=== PATIENT | male | born 1970 | race Caucasian/White ===

== ENCOUNTER 2019-07-09 23:21 | Emergency (ER) | payer BC, OTHER ==
[2019-07-10] MEDS ORDERED: Sodium Chloride 0.9% 1,000 ML IV ONE (01:13)
[2019-07-10] MEDS ORDERED: Prochlorperazine 10 MG in Sodium Chloride 0.9% 50 ML IV ONE (01:13)
[2019-07-10] MEDS ORDERED: Ketorolac 30 MG/ML SDV IVPUSH ONE (01:13)
[2019-07-10] MEDS ORDERED: diphenhydrAMINE 50 MG/ML SDV IVPUSH ONE (01:13)
--- NOTE | 2019-07-10 02:52 | EDM.PDOC ---
ED HPI GENERAL MEDICAL PROBLEM - General Chief Complaint: Cardiovascular Problem Stated Complaint: BLOOD PRESSURE Time Seen by Provider: 07/10/19 00:55 - History of Present Illness INITIAL COMMENTS - FREE TEXT/NARRATIVE: HPI 49-year-old male migraineur presents for evaluation of a right-sided pounding and at times pulsatile type headache along with the concern that he has high blood pressure. Patient reports that he was recently diagnosed with hypertension , has been treated by urgent care doctors but has yet to establish or follow-up the primary care physician. * Denies changes in vision or hearing (aside from above), fevers, neck stiffness , rashes, neck pain, temporal pain, jaw pain with chewing, dental pain, minor neck trauma, chiropractic manipulation, or head trauma. * Denies anticoagulation or hypercoaguable history. * No family members with similar symptoms. CO detectors in house. Unable to identify any higher risk exposures to possible carbon monoxide. M/S/F/SocHx notable for: please see HPI; remainder reviewed with patient and in chart. ROS: Negative constitutional, eye, cardiovascular, pulmonary, GI, , MSK, skin , neurologic, psychiatric, endocrine unless noted in the HPI. Exam HR 75, RR 18, BP 169/95, T 35.8C, SaO2 96% on room air. Gen: Pleasant, non-toxic appearing, resting comfortably. HEENT: NC, AT, TMs clear bilaterally without effusions, erythema, or lesions, preauricular, pinna, and external canal skin without lesions. Dentition intact without visible caries. No frontal or maxillary sinus TTP. No paraspinal posterior neck pain. Resp: clear to auscultation bilaterally. Card: RRR GI: NT/ND : Deferred MSK: No visible deformities, strength and tone WNL. Skin: Normal color with no visible lesions. Neuro: alert and oriented 3, no facial asymmetry, no gaze preference, no slurring of speech. CN II-III: pupils equal and reactive (4->2mm bilaterally); III, IV, : EOMI, V1-V3: sensation to touch bilaterally intact; VII: no facial asymmetry (frown / smile); VIII: no nystagmus; X: phonation intact, uvula midline; XI: trapezius 5/5 bilaterally, XII: tongue midline. Psych: Mood and affect appropriate. Labs / Imaging (pertinent): EKG: SR 113 bpm, no ST segment elevations or depressions, no LBBB. MDM Previous chart, nursing note, and vitals reviewed. A: 49-year-old male presents for evaluation of a right-sided pounding and at times pulsatile type headache along with the concern that he has high blood pressure. DDx: migraine / tension headache, cluster headache, sentinel bleed/SAH, infection (BIOINFORMATICIST vs SUGGS secondary to non-BIOINFORMATICIST focal infection), tumor/mass effect, hypertensive encephalopathy, glaucoma or iritis, idiopathic intracranial hypertension, cavernous sinus thrombosis, temporal arteritis. Evaluation: discuss with patient the possibility of his apparently new in nature right-sided headaches along with the pulsatile complement being concerning for serious etiology (dissection, tumor, or alternate etiologies). Patient considered the possibility of further evaluation and declined all imaging or laboratory testing and requested treatment of his headache. The headache was treated with 1 L NS, Compazine, diphenhydramine, and Toradol with resolution of headache. Blood pressure remained within the brains autoregulatory zone. No features suggestive of sentinel bleed or SAH by history , neuro exam unremarkable, and the patient is without ocular competence suggestive of glaucoma or iritis. No identifiable risk features for thrombosis or temporal arteritis. Patient was discharged AMA along with a refill for his losartan 25 mg q.d. Patient instructed to follow up immediately with primary care. Impression: headache, asymptomatic hypertension. head Pain Score (Numeric/FACES): 2 - Related Data Allergies Allergy/AdvReac Type Severity Reaction Status Date / Time No Known Allergies Allergy Verified 07/10/19 00:31 Home Meds: Home Meds Losartan [Cozaar] 25 mg PO DAILY #30 tablet 07/10/19 [Rx] Past Medical History Cardiovascular History: Reports: Hypertension Endocrine/Metabolic History: Reports: Obesity/BMI 30+ - Past Surgical History GI Surgical History: Reports: Cholecystectomy Musculoskeletal Surgical History: Reports: Shoulder Surgery Social & Family History - Family History Family Medical History: Noncontributory - Tobacco Use Smoking Status *Q: Never Smoker - Recreational Drug Use Recreational Drug Use: No ED ROS GENERAL - Review of Systems Review Of Systems: See Below ED EXAM, GENERAL - Physical Exam Exam: See Below Course - Vital Signs Last Recorded V/S: Last Vital Signs Temp 35.8 C 07/10/19 00:20 Pulse 75 07/10/19 00:20 Resp 18 07/10/19 00:20 BP 169/95 H 07/10/19 00:20 Pulse Ox 96 07/10/19 00:20 - Orders/Labs/Meds Orders: Active Orders 24 hr Category Date Time Status EKG 12 Lead [EKG Documentation Completion] [RC] STAT Care 07/10/19 00:47 Active Meds: Medications Discontinued Medications Generic Name Dose Route Start Last Admin Trade Name Michael PRN Reason Stop Dose Admin Diphenhydramine HCl 25 mg 07/10/19 01:13 07/10/19 01:27 Benadryl IVPUSH 07/10/19 01:14 25 mg ONETIME ONE Administration Prochlorperazine Edisylate 10 52 mls @ 150 mls/hr 07/10/19 01:13 07/10/19 01: 36 mg/ Sodium Chloride IV 07/10/19 01:33 150 mls/hr ONETIME ONE Administration Sodium Chloride 1,000 mls @ 1,000 mls/hr 07/10/19 01:13 07/10/19 01:27 Normal Saline IV 07/10/19 02:12 1,000 mls/hr .Bolus ONE Administration Ketorolac Tromethamine 15 mg 07/10/19 01:13 07/10/19 01:26 Toradol IVPUSH 07/10/19 01:14 15 mg ONETIME ONE Administration Departure - Departure Time of Disposition: 02:50 Disposition: Home, Self-Care 01 Clinical Impression: Headache Prescriptions: Losartan [Cozaar] 25 mg PO DAILY #30 tablet Referrals: PCP,None [Primary Care Provider] - Additional Instructions: You were in seen in the Emergency Department for evaluation of a headache. At time of your evaluation the cause of your headaches is unclear. As we discussed there is concern that your headache might represent a serious underlying problem. This could lead to permanent and sudden disability or . You are being discharged against medical advice. You are welcome to return to this or any other emergency department at any time for further care. Prior to being discharged, you expressed an understanding that you are risking permanent disability or from an undiagnosed or untreated emergency medical condition. You also expressed a willingness to accept this risk and assume responsibility for the results of this choice. At the time of your discharge we are concerned that you are at risk for serious problem causing your headache such as a dissection of the blood vessels of your chest, head, or neck, tumor, or other significant abnormality and we recommend remaining in the emergency department for further care. To reduce your risk, please do the following: Return immediately for any worsening of condition or any other new concerns. Read all the instructions we provided today. Continue all your medications as prescribed. Follow up with your primary care physician immediately. You are being discharged against medical advice. You are welcome to return to this or any other emergency department at any time for further care. Please read and follow all of the instructions below. When calling for follow-up care, please make the office aware that this follow- up is from your recent emergency room visit. If for any reason you are refused follow-up, please contact the Emergency Department at and asked to speak to the emergency department charge nurse. Your care today was limited to identifying and treating emergent medical problems only. Many people have subtle differences in their test results that require follow up with their outpatient physician(s) to correctly determine if this represents a normal variation or concerning abnormality with respect to your specific health. The care given to you today was limited to identifying and treating emergent medical problems - you need to request a copy of all of your medical records from today's visit and follow up with your outpatient physician(s) to review both today's visit and your overall health. If you have any new symptoms or if you are at all concerned about your health please return immediately to the emergency department. Prescriptions: If you are uninsured or have financial difficulties with filling your prescription(s), you may consider using a free pharmacy discount service such as [employer] (FindIt) or [employer] ([employer]gifted2you). These services allow you to search for a medication on your phone (or computer) and obtain a coupon that usually has a significant discount from the list retana at a pharmacy. Your physician as well as [facility] does not have a financial relationship with either of these services. You may also wish to speak with your physician to determine if lower cost prescriptions are possible. Obtaining primary care: 1. [facility] provides pediatrics (children), family medicine (children, adults, and some obstetrical care), and internal medicine (adults). Further specialty care is also available. Same day appointments are available. They may be contacted at [phone] and are open Thursday through Thursday 8 AM to 5 PM. The [facility] clinics are located at [facility], [address], [place] [address]. 2. [facility] offers family medicine, internal medicine, women health, and further specialty care. [facility] may be contacted at [phone]. [facility] is located at [address] [place], [address]. 3. If you have health insurance, please also contact your insurer for a list of accepting providers under your policy, you may contact these providers for further health care. Occupational health: Work related injuries may consider following up with [facility], . Occupational health services are located at [address], [place] [address] and are open Thursday through Thursday from 7: 30 am to 5:00 pm. Obstetrical and Gynecological Care: [facility], , Thursday through Thursday 8 AM to 5 PM. [address] [place] [address]. Eyecare: If you have an eye injury you should follow up with your crew leader gluing or with [facility], at [phone] or [phone] , they are located at [address] [place] [address]. Dental Care Quinton Rodrigues DDS. [address] [facility], [place], [place]. Ph. [phone] Mac Rodrigues DDS MS. [address] [facility] [address], [place], [place]. Ph. [phone] Pedro Pablo Suarez DDS. 10 07/07 [facility], [place]. Ph. [phone] Naresh Crow DDS. [address] [facility] [address] [place], [place]. Ph. [phone] Haile Zurita DDS PC. [address] [place], [place]. Ph. [phone] Moisés Simpson DDS. [address] [facility]. Ph. [phone] [facility]. [address] [place], [place]. Ph. [phone] [facility]. [address], [place], [place]. Ph. [phone] [facility] [address] [place] [address]. Ph. [phone] [facility]. [address] [place] [address] [address] [place], [place]. Ph. [phone] [facility]. [address] [place], [place]. Ph. [phone] Headache You were seen in the emergency department for evaluation and treatment of a headache. There are many causes for headaches. Most are painful but do not threaten your health. However there are some types of headaches that can be life threatening. Please return to the emergency department if you develop any of the following: * Your headache worsens, becomes severe, or you have nausea or vomiting. * Fever greater than 100.5 degrees Fahrenheit. * You have neck stiffness. * Changes in vision or hearing. * You have new weakness, numbness, or decreased sensation. * You have dizziness or difficulty walking * You feel faint or like you will pass out. Please follow up with your primary care doctor if your symptoms continue or do not improve. If you have recurrent headaches, your primary care physician may be able to prescribe medications that abort headaches or refer you to a neurologist for further evaluation and work up of your headaches. Home care instructions: * Keep all follow-up appointments with your caregiver or any specialist referral. * Lie down in a dark, quiet room when you have a headache. Keep a headache journal to find out what may trigger your migraine headaches. For example, write down: * What you eat and drink. * How much sleep you get. * Any change to your diet or medicines. * Try massage or other relaxation techniques. * Put ice packs or heat on the head and neck. Use these 3 to 4 times per day for 15 to 20 minutes each time, or as needed. * Limit stress. * Sit up straight, and do not tense your muscles. * Quit smoking if you smoke. * Limit alcohol use. * Decrease the amount of caffeine you drink, or stop drinking caffeine. * Eat and sleep on a regular schedule. * Get 7 to 9 hours of sleep, or as recommended by your caregiver. * Keep lights dim if bright lights bother you and make your headaches worse. You make take over the counter Acetaminophen (Tylenol) and Ibuprofen (Motrin or Aleve) as directed below for relief of pain. * Take 600 mg of ibuprofen (three 200 mg tablets) with a glass of water every 6- 8 hours as needed for pain or fever. Do not take if , allergic to ibuprofen, or if you have severe kidney disease. * Take 1,000 mg of acetaminophen (two 500 mg tablets) with a glass of water every 6-8 hours as needed for pain. Do not take up allergic to acetaminophen. If you have liver disease do not take more than 2000 mg in 24 hours. * You can take these medications at the same time or on separate schedules. * Do not take for more than 10 days. * Do not take with alcohol or other acetaminophen containing medications. * This medication may cause a mildly upset stomach, if so take it with a small snack. Stop taking it if you have persistent abdominal pain, heartburn, or any stomach pain. Do not take this medication if you have known ulcers. * Please read the warnings at the end of this document regarding these medications. IBUPROFEN WARNING: This drug may infrequently cause serious (rarely fatal) bleeding from the stomach or intestines. Also, related drugs rarely have caused blood clots to form, resulting in heart attacks and strokes. This medication might also rarely cause similar problems. Talk to your doctor or pharmacist about the benefits and risks of treatment, as well as other possible medication choices. If you notice any of the following rare but very serious side effects, stop taking ibuprofen and seek immediate medical attention: black stools, persistent stomach/abdominal pain, vomit that looks like coffee grounds, chest pain, weakness on one side of the body, sudden vision changes, slurred speech. IBUPROFEN SIDE EFFECTS: Upset stomach, nausea, vomiting, heartburn, headache, diarrhea, constipation, drowsiness, and dizziness may occur. If any of these effects persist or worsen, notify your doctor or pharmacist promptly. If your doctor has directed you to use this medication, remember that he or she has judged that the benefit to you is greater than the risk of side effects. Many people using this medication do not have serious side effects. Tell your doctor immediately if any of these serious side effects occur: stomach pain, swelling of the hands or feet, sudden or unexplained weight gain, ringing in the ears ( tinnitus). Tell your doctor immediately if any of these unlikely but serious side effects occur: vision changes, rapid or pounding heartbeat, easy bruising or bleeding, difficult/painful swallowing. Tell your doctor immediately if any of these highly unlikely but very serious side effects occur: change in amount of urine, severe headache, very stiff neck, mental/mood changes, persistent sore throat or fever. This drug may rarely cause serious (possibly fatal) liver disease. If you notice any of the following highly unlikely but very serious side effects, stop taking ibuprofen and consult your doctor or pharmacist immediately: yellowing eyes and skin, dark urine, unusual/extreme tiredness. An allergic reaction to this drug is unlikely, but seek immediate medical attention if it occurs. Symptoms of an allergic reaction include: rash, itching/ swelling (especially of the face/tongue/throat), severe dizziness, trouble breathing. This is not a complete list of possible side effects. ACETAMINOPHEN SIDE EFFECTS: This drug usually has no side effects. If you do not have liver problems, the maximum dose of acetaminophen for adults is 4 grams per day (4000 milligrams). Taking more than the maximum daily amount may cause serious (possibly fatal) liver damage. Get medical help right away if you have any of the following symptoms of liver damage: persistent nausea/vomiting, extreme tiredness, stomach/abdominal pain, yellowing eyes/skin, dark urine. If you have liver problems, consult your doctor or pharmacist for a safe dosage of this medication. A very serious allergic reaction to this drug is rare. However , get medical help right away if you notice any symptoms of a serious allergic reaction, including: rash, itching/swelling (especially of the face/tongue/ throat), severe dizziness, trouble breathing. This is not a complete list of possible side effects. If you notice other effects not listed above, contact your doctor or pharmacist. DRUG INTERACTIONS: Your healthcare professionals (e.g., doctor or pharmacist) may already be aware of any possible drug interactions and may be monitoring you for it. Do not start, stop or change the dosage of any medicine before checking with them first. This drug should not be used with the following medications because very serious interactions may occur: cidofovir, ketorolac. If you are currently using any of these medications listed above, tell your doctor or pharmacist before starting ibuprofen. Before using this medication, tell your doctor or pharmacist of all prescription and nonprescription/herbal products you may use, especially of: anti-platelet drugs (e.g., cilostazol, clopidogrel), oral bisphosphonates (e.g., alendronate), other medications for arthritis (e.g., aspirin, methotrexate), "blood thinners" (e.g., enoxaparin, heparin, warfarin), corticosteroids (e.g., prednisone), cyclosporine, desmopressin, high blood pressure drugs (including SHAE inhibitors such as captopril, angiotensin II receptor antagonists such as losartan, and beta- blockers such as metoprolol), lithium, pemetrexed, "water pills" (diuretics such as furosemide, hydrochlorothiazide, triamterene). Check all prescription and nonprescription medicine labels carefully for other pain/fever drugs ( NSAIDs such as aspirin, celecoxib, naproxen). These drugs are similar to ibuprofen, so taking one of these drugs while also taking ibuprofen may increase your risk of side effects. Consult your doctor or pharmacist for more details. However, if your doctor has prescribed low doses of aspirin to prevent heart attack or stroke (usually at dosages of 81-325 milligrams a day), you should continue to take the aspirin. Daily use of ibuprofen may decrease aspirin 's ability to prevent heart attack/stroke. Talk to your doctor about using a different medication (e.g., acetaminophen) to treat pain/fever. If you must take ibuprofen, talk to your doctor about possibly taking immediate-release aspirin (not enteric-coated) while also taking the ibuprofen dose apart from your aspirin dose. Do not increase your daily dose of aspirin or change the way you take aspirin/other medications without your doctor's approval. This document does not contain all possible interactions. Therefore, before using this product, tell your doctor or pharmacist of all the products you use. Keep a list of all your medications with you, and share the list with your doctor and pharmacist. Losartan (Brand Name: Cozaar) Usage Instructions Take 50 mg once daily. This may be taken with or without food. Follow up with your primary care doctor within 2-4 days for repeat evaluation of your blood pressure and further medication adjustments as appropriate. Losartan Side Effects: Dizziness or lightheadedness may occur as your body adjusts to the medication. If any of these effects persist or worsen, tell your doctor or pharmacist promptly. To reduce the risk of dizziness and lightheadedness, get up slowly when rising from a sitting or lying position. Remember that your doctor has prescribed this medication because he or she has judged that the benefit to you is greater than the risk of side effects. Many people using this medication do not have serious side effects. Tell your doctor right away if any of these unlikely but serious side effects occur: fainting, symptoms of a high potassium blood level (such as muscle weakness, slow/irregular heartbeat). Although losartan may be used to prevent kidney problems or treat people who have kidney problems, it may also rarely cause serious kidney problems or make them worse. Your doctor will check your kidney function while you are taking losartan. Tell your doctor right away if you have any signs of kidney problems such as a change in the amount of urine. A very serious allergic reaction to this drug is rare. However, get medical help right away if you notice any symptoms of a serious allergic reaction, including: rash, itching/swelling (especially of the face/tongue/throat), severe dizziness, trouble breathing. This is not a complete list of possible side effects. If you notice other effects not listed above, contact your doctor or pharmacist. Losartan Precautions: Before taking losartan, tell your doctor or pharmacist if you are allergic to it; or if you have any other allergies. This product may contain inactive ingredients, which can cause allergic reactions or other problems. Talk to your pharmacist for more details. Before using this medication, tell your doctor or pharmacist your medical history, especially if you have liver disease or problems with (dehydration). This drug may make you dizzy. Alcohol or marijuana can make you more dizzy. Do not drive, use machinery, or do anything that needs alertness until you can do it safely. Limit alcoholic beverages. Talk to your doctor if you are using marijuana. This medication may increase your potassium levels. Before using potassium supplements or salt substitutes that contain potassium, consult your doctor or pharmacist. Before having surgery, tell your doctor or dentist about all the products you use (including prescription drugs, nonprescription drugs, and herbal products). This medication is not recommended for use during due to the risk for harm to an unborn baby. Consult your doctor for more details. (See also Warning section.) It is unknown if this drug passes into breast milk. Consult your doctor before breast-feeding. Losartan Interactions: Before using this medication, tell your doctor or pharmacist of all prescription and nonprescription/herbal products you may use. This document does not contain all possible interactions. Therefore, before using this product, tell your doctor or pharmacist of all the products you use. Keep a list of all your medications with you, and share the list with your doctor and pharmacist. Some products that may interact with this drug include: aliskiren, lithium, drugs that may increase the level of potassium in the blood (such as SHAE inhibitors including benazepril/lisinopril, control pills containing drospirenone). Some products have ingredients that could raise your blood pressure or worsen your heart failure. Tell your pharmacist what products you are using, and ask how to use them safely (especially [id number] products, diet aids, or NSAIDs such as ibuprofen/naproxen). High Blood Pressure (Hypertension) When you were in the emergency department you had an abnormally high blood pressure. High blood pressure can be without symptoms. However high blood pressure can lead to many medical problems including kidney disease, strokes, and heart attacks. 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 Please see your primary care physician in 2-3 days for a repeat check of your blood pressure. This may help prevent many health serious problems in the future. Please return to the emergency department if you develop any of the following: chest pain, shortness of breath, new or severe headache, changes in vision or hearing, weakness, or if you are otherwise concerned about your health. Sepsis Event Note - Evaluation Sepsis Screening Result: No Definite Risk - Focused Exam Vital Signs: Vital Signs Temp Pulse Resp BP Pulse Ox 07/10/19 00:20 35.8 C 75 18 169/95 H 96 Date Exam was Performed: 07/10/19 Time Exam was Performed: 02:49 - My Orders Last 24 Hours: My Active Orders 07/10/19 00:47 EKG 12 Lead [EKG Documentation Completion] [RC] STAT - Assessment/Plan Last 24 Hours: My Active Orders 07/10/19 00:47 EKG 12 Lead [EKG Documentation Completion] [RC] STAT
[2019-07-10 05:31] VITALS: BP 163/95; PULSE 74
== END 2019-07-10 03:12 | disposition home or self-care (01) ==
LOC: MW.ED 23:21
DX: R51 Headache (principal); I10 Essential (primary) hypertension; E66.9 Obesity, unspecified; Z90.49 Acquired absence of other specified parts of digestive tract
CPT/HCPCS: 96365; 96375; 99284; J0780; J1200; J1885; J7030; J7050; 99283

== ENCOUNTER 2019-11-20 19:09 | Emergency (ER) | payer SELFPAY ==
--- NOTE | 2019-11-20 19:20 | EDM.PDOC ---
ED HPI GENERAL MEDICAL PROBLEM - General Chief Complaint: General Stated Complaint: HIGH BLOOD PRESSURE Time Seen by Provider: 11/20/19 19:12 Source of Information: Reports: Patient History Limitations: Reports: No Limitations - History of Present Illness INITIAL COMMENTS - FREE TEXT/NARRATIVE: HISTORY AND PHYSICAL: History of present illness: Patient is a 49-year-old male who presents to the emergency room with concerns of his blood pressure being elevated. He states he has a history of hypertension and when his blood pressure gets high he will feel a flushed sensation in his neck and wrapping to his scalp. He has been checking his blood pressure at home several times in the past 24 hours and is been running 180-160 over 90s. He states typically when he feels this way he will take an additional blood pressure tab, but does not feel that this helps at all. He states he also has a history of migraine headaches which he will get some tension in his neck but does not have the severe frontal headache pain that he typically has. He is concerned about his visit here today as he does not carry insurance and with his normal blood pressure reading right now he does not want any labs, EKG or chest x-ray done. Patient denies any fever, chills, headache, change in vision, syncope or near syncope. Denies any chest pain, back pain, shortness of breath or cough. Denies any abdominal pain, nausea, vomiting, diarrhea, constipation or dysuria.Patient has been eating and drinking appropriately. Review of systems: As per history of present illness and below otherwise all systems reviewed and negative. Past medical history: As per history of present illness and as reviewed below otherwise noncontributory. Surgical history: As per history of present illness and as reviewed below otherwise noncontributory. Social history: See social history for further information Family history: As per history of present illness and as reviewed below otherwise noncontributory. Physical exam: General: Well-developed well-nourished 49-year-old male. Alert and oriented. Nontoxic-appearing and in no acute distress. HEENT: Atraumatic, normocephalic, pupils equal and reactive bilaterally, negative for conjunctival pallor or scleral icterus, mucous membranes moist, TMs normal bilaterally, throat clear, neck supple, nontender, trachea midline. No drooling or trismus noted. No meningeal signs. No hot potato voice noted. Lungs: Clear to auscultation, breath sounds equal bilaterally, chest nontender. Heart: S1S2, regular rate and rhythm without overt murmur Abdomen: Soft, nondistended, nontender. Negative for masses or hepatosplenomegaly. Negative for costovertebral tenderness. Skin: Intact, warm, dry. No lesions or rashes noted. C-spine/Back: No pinpoint vertebral tenderness upon palpation. No crepitus, step -offs or obvious deformities. Patient is ambulatory into the emergency room without difficulty or deficit. Does have some trapezius/neck tension bilaterally. Neck muscular pain worses when turns head side to side. He denies any numbness, tingling or saddle paresthesia to distal extremities. Extremities: Atraumatic, moves all extremities per self without difficulty or deficits, negative for cords or calf pain. Neurovascular unremarkable. Neuro: Awake, alert, oriented. Cranial nerves II through XII unremarkable. Cerebellum unremarkable. Motor and sensory unremarkable throughout. Exam nonfocal. Notes: We discussed the importance of having a thorough evaluation as he does have risk factors for heart disease. He is aware of the risks of not doing any diagnostics at this time. We will give him some Toradol for the headache type pain and Norflex of the muscle tension in his neck. Patient has been on losartan 25 mg for months and states his blood pressure never really has gone lower than 150s over 90s. He has not established care with a primary care provider to have this ever increased or reevaluated. Looking at his previous charts I do still see he has been running high normal and we discussed adjusting his dosing. We will increase his losartan to 50 mg once daily. Discussed the importance of establishing care with a primary care provider to help him decrease because of the ER visits and having a better evaluation of some of his symptoms (since he doesn't want them done here in the ED because of costs). Supportive care measures were reviewed and discussed. Voices understanding and is agreeable to plan of care. Denies any further questions or concerns at this time. Diagnostics: Declines Therapeutics: Norflex, Toradol Prescription: Losartan Impression: Encounter for medical screening exam Headache Plan: 1. Start taking the Losartan 50mg once daily. Monitor blood pressure as we discussed. 2. Decrease stressors. 3. Establish with a primary care provider. Return to the ED as needed as discussed. Definitive disposition and diagnosis as appropriate pending reevaluation and review of above. - Related Data Allergies Allergy/AdvReac Type Severity Reaction Status Date / Time No Known Allergies Allergy Verified 11/20/19 20:01 Home Meds: Home Meds Losartan [Cozaar] 25 mg PO DAILY #30 tablet 07/10/19 [Rx] Past Medical History Cardiovascular History: Reports: Hypertension Endocrine/Metabolic History: Reports: Obesity/BMI 30+ - Past Surgical History GI Surgical History: Reports: Cholecystectomy Musculoskeletal Surgical History: Reports: Shoulder Surgery Social & Family History - Family History Family Medical History: Noncontributory ED ROS GENERAL - Review of Systems Review Of Systems: Comprehensive ROS is negative, except as noted in HPI. ED EXAM, GENERAL - Physical Exam Exam: See Below (See dictation) Course - Orders/Labs/Meds Meds: Medications Discontinued Medications Generic Name Dose Route Start Last Admin Trade Name Freq PRN Reason Stop Dose Admin Ketorolac Tromethamine 60 mg 11/20/19 19:28 11/20/19 20:04 Toradol IM 11/20/19 19:29 60 mg ONETIME ONE Administration Orphenadrine Citrate 60 mg 11/20/19 19:28 11/20/19 20:01 Norflex IM 11/20/19 19:29 60 mg ONETIME ONE Administration Departure - Departure Time of Disposition: 20:09 Disposition: Home, Self-Care 01 Clinical Impression: Encounter for medical screening examination Headache Qualifiers: Headache type: unspecified Headache chronicity pattern: unspecified pattern Intractability: not intractable Qualified Code(s): R51 - Headache - Discharge Information Instructions: Hypertension, Adult, [id number] Forms: ED Department Discharge Additional Instructions: The following information is given to patients seen in the emergency department who are being discharged to home. This information is to outline your options for follow-up care. We provide all patients seen in our emergency department with a follow-up referral. The need for follow-up, as well as the timing and circumstances, are variable depending upon the specifics of your emergency department visit. If you don't have a primary care physician on staff, we will provide you with a referral. We always advise you to contact your personal physician following an emergency department visit to inform them of the circumstance of the visit and for follow-up with them and/or the need for any referrals to a consulting specialist. The emergency department will also refer you to a specialist when appropriate. This referral assures that you have the opportunity for follow-up care with a specialist. All of these measure are taken in an effort to provide you with optimal care, which includes your follow-up. Under all circumstances we always encourage you to contact your private physician who remains a resource for coordinating your care. When calling for follow-up care, please make the office aware that this follow-up is from your recent emergency room visit. If for any reason you are refused follow-up, please contact the [facility] Emergency Department at and asked to speak to the emergency department charge nurse. [facility] [address] [place] [id number] [facility] [address] [place] [id number] 1. Start taking the Losartan 50mg once daily. Monitor blood pressure as we discussed. 2. Decrease stressors. 3. Establish with a primary care provider. Return to the ED as needed as discussed. Sepsis Event Note - Focused Exam Date Exam was Performed: 11/20/19 Time Exam was Performed: 20:08
[2019-11-20] MEDS ORDERED: Ketorolac 60 MG/2 ML SDV IM ONE (19:28)
[2019-11-21 00:39] VITALS: BP 134/85; PULSE 80
== END 2019-11-20 20:53 | disposition home or self-care (01) ==
LOC: MW.ED 19:09
DX: R51 Headache (principal); I10 Essential (primary) hypertension; E66.9 Obesity, unspecified; Z68.38 Body mass index [BMI] 38.0-38.9, adult; Z79.899 Other long term (current) drug therapy
CPT/HCPCS: 96372; 99283; J1885; J2360; 99282